=== PATIENT | female | born 1930 | race Native Hawaiian/Other Pacific Islander ===

== ENCOUNTER 2016-12-04 17:00 | Emergency (ER) | payer OTHER ==
[~2016-12-04] VITALS: Ht 167.6 cm; Wt 60.3 kg
[~2016-12-04 17:00] MED LIST: ALEN70TA19 PO; ALPR0.5T24 PO; ASPIRIN 8181 MG PO; CALCIUM600 M1 PO; DIGO0.2549 PO; DILT-XR120 MG OR; DOXEPIN HCL50 MG PO; FISH OIL1 C10 PO; LATA0.00 OP; LORTAB 5-325 MG1 TAB PO; MAGNESIUM1 TAB PO; NAMENDA10 MG PO; OMEP20CA PO; VITAMIN D400 UNI1 PO
[2016-12-04 17:27] VITALS: TEMP 98.2
[2016-12-04] MEDS ORDERED: XANAX XR1 MG OR (17:30)
[2016-12-04 18:32] VITALS: BP 191/74
== END 2016-12-04 18:32 | disposition home or self-care (01) ==
LOC: ED 17:00
DX: S70.11XA Contusion of right thigh, initial encounter (principal); S20.211A Contusion of right front wall of thorax, initial encounter; F13.20 Sedative, hypnotic or anxiolytic dependence, uncomplicated; W06.XXXA Fall from bed, initial encounter; Y92.098 Other place in other non-institutional residence as the place of occurrence of the external cause
CPT/HCPCS: 96372; 99283; J1885

== ENCOUNTER 2017-02-23 15:44 | Outpatient (CLI) | payer OTHER ==
[~2017-02-23 15:44] MED LIST changes: +XANAX XR1 MG OR
== END 2017-02-23 16:50 | disposition home or self-care (01) ==
LOC: RAD 15:44
DX: J40 Bronchitis, not specified as acute or chronic (principal)

== ENCOUNTER 2017-02-24 07:23 | Outpatient (CLI) | payer OTHER ==
[2017-02-24 08:15] LABS: PLATELET COUNT 201 K/uL (152-353)
== END 2017-02-24 19:04 | disposition home or self-care (01) ==
LOC: LABW 07:23
PROVIDERS: Internal Medicine
DX: I25.9 Chronic ischemic heart disease, unspecified (principal); R79.89 Other specified abnormal findings of blood chemistry; Z79.899 Other long term (current) drug therapy
CPT/HCPCS: 36415; 80053; 80061; 81000; 84439; 84443; 85027

== ENCOUNTER 2017-03-30 13:24 | Outpatient (CLI) | payer OTHER | END 2017-03-30 19:07 | disposition home or self-care (01) | LOC: RESP 13:24 | DX: R06.02 Shortness of breath (principal) | CPT/HCPCS: 94640; 94664 ==

== ENCOUNTER 2017-08-18 14:20 | Outpatient (CLI) | payer OTHER ==
[2017-08-18 15:24] LABS: POTASSIUM 4.1 mmol/L (3.6-5.2)
[2017-08-18 16:20] LABS: PLATELET COUNT 168 K/uL (152-353)
== END 2017-08-18 15:20 | disposition home or self-care (01) ==
LOC: LAB 14:20
PROVIDERS: Internal Medicine
DX: Z79.899 Other long term (current) drug therapy (principal); Z51.81 Encounter for therapeutic drug level monitoring
CPT/HCPCS: 80053; 80061; 81000; 84443; 85027

== ENCOUNTER 2017-12-02 14:35 | Outpatient (CLI) | payer OTHER | END 2017-12-02 19:40 | disposition home or self-care (01) | LOC: RAD 14:35 | DX: R50.9 Fever, unspecified (principal) ==

== ENCOUNTER 2017-12-25 10:43 | Emergency (ER) | payer OTHER ==
[~2017-12-25] VITALS: Ht 167.6 cm; Wt 61.2 kg
[2017-12-25 12:03] LABS: PLATELET COUNT 155 K/uL (152-353)
[2017-12-25 12:04] LABS: POTASSIUM 4.1 mmol/L (3.6-5.2)
[2017-12-25 12:40] VITALS: BP 165/74; TEMP 97.2
== END 2017-12-25 12:48 | disposition home or self-care (01) ==
LOC: ED 10:43
DX: J44.1 Chronic obstructive pulmonary disease with (acute) exacerbation (principal); R06.02 Shortness of breath
CPT/HCPCS: 36415; 80053; 83880; 85027; 87081; 87880; 93005; 94664; 94760; 99283

== ENCOUNTER 2018-01-03 08:54 | Outpatient (CLI) | payer OTHER | END 2018-01-03 17:00 | disposition home or self-care (01) | LOC: CT 08:54 | DX: G45.8 Other transient cerebral ischemic attacks and related syndromes (principal) ==

== ENCOUNTER 2018-03-30 08:46 | Outpatient (CLI) | payer OTHER | END 2018-03-30 19:25 | disposition home or self-care (01) | LOC: US 08:46 | DX: R11.0 Nausea (principal) ==

== ENCOUNTER 2018-05-28 05:56 | Emergency (ER) | payer OTHER ==
[~2018-05-28] VITALS: Ht 165.1 cm; Wt 62.1 kg
[2018-05-28 06:14] VITALS: TEMP 97.4
[2018-05-28 06:56] LABS: PLATELET COUNT 171 K/uL (152-353)
[2018-05-28 07:10] LABS: POTASSIUM 4.2 mmol/L (3.6-5.2)
[2018-05-28 08:50] VITALS: BP 146/77
== END 2018-05-28 08:50 | disposition home or self-care (01) ==
LOC: ED 05:56
PROVIDERS: Allergy & Immunology
DX: M81.8 Other osteoporosis without current pathological fracture (principal); M54.89 Other dorsalgia; M19.90 Unspecified osteoarthritis, unspecified site
CPT/HCPCS: 36415; 80053; 81000; 82553; 84484; 85027; 93005; 96372; 99283; J1885

== ENCOUNTER 2018-12-05 12:40 | Outpatient (CLI) | payer OTHER | END 2018-12-05 23:16 | disposition home or self-care (01) | LOC: RAD 12:40 | DX: M54.5 Low back pain (principal); M54.16 Radiculopathy, lumbar region ==

== ENCOUNTER 2019-02-05 14:12 | Emergency (ER) | payer OTHER ==
[~2019-02-05] VITALS: Ht 165.1 cm; Wt 62.1 kg
[2019-02-05 15:49] LABS: PLATELET COUNT 196 K/uL (152-353)
[2019-02-05 15:55] LABS: POTASSIUM 3.9 mmol/L (3.6-5.2)
[2019-02-05 20:30] VITALS: BP 171/54; TEMP 97.7
== END 2019-02-05 20:40 | disposition home or self-care (01) ==
LOC: ED 14:12
PROVIDERS: Emergency Medicine
DX: E86.0 Dehydration (principal)
CPT/HCPCS: 36415; 80053; 81000; 82550; 84484; 85027; 87502; 93005; 99283

== ENCOUNTER 2019-07-06 13:47 | Emergency (ER) | payer OTHER ==
[~2019-07-06] VITALS: Ht 165.1 cm; Wt 62.1 kg
[2019-07-06 13:59] VITALS: TEMP 98
[2019-07-06 15:26] LABS: PLATELET COUNT 215 K/uL (152-353)
[2019-07-06 15:33] LABS: POTASSIUM 4.4 mmol/L (3.6-5.2)
[2019-07-06 17:42] VITALS: BP 122/65
== END 2019-07-06 17:44 | disposition home or self-care (01) ==
LOC: ED 13:47
PROVIDERS: Family Medicine
DX: K59.09 Other constipation (principal)
CPT/HCPCS: 80053; 81000; 85027; 99283

== ENCOUNTER 2019-08-21 11:43 | Outpatient (CLI) | payer OTHER | END 2019-08-21 20:23 | disposition home or self-care (01) | LOC: RAD 11:43 | DX: J40 Bronchitis, not specified as acute or chronic (principal); M25.512 Pain in left shoulder ==

== ENCOUNTER 2019-10-24 08:27 | Outpatient (CLI) | payer OTHER | END 2019-10-24 19:23 | disposition home or self-care (01) | LOC: CT 08:27 | DX: R10.84 Generalized abdominal pain (principal) | CPT/HCPCS: 36415; 82565; 84520; Q9963 ==

== ENCOUNTER 2020-05-28 08:25 | Outpatient (CLI) | payer OTHER ==
[2020-05-28 10:00] LABS: PLATELET COUNT 194 K/uL (152-353)
== END 2020-05-28 19:39 | disposition home or self-care (01) ==
LOC: LABW 08:25
PROVIDERS: Internal Medicine
DX: F03.90 Unspecified dementia, unspecified severity, without behavioral disturbance, psychotic disturbance, mood disturbance, and anxiety (principal); J44.9 Chronic obstructive pulmonary disease, unspecified; I10 Essential (primary) hypertension
CPT/HCPCS: 36415; 80053; 80061; 84439; 84443; 85027

== ENCOUNTER 2020-06-09 09:03 | Outpatient (CLI) | payer OTHER ==
[2020-06-09 09:56] LABS: PLATELET COUNT 167 K/uL (152-353)
== END 2020-06-09 19:09 | disposition home or self-care (01) ==
LOC: LABW 09:03
PROVIDERS: Internal Medicine
DX: E53.8 Deficiency of other specified B group vitamins (principal); D64.9 Anemia, unspecified
CPT/HCPCS: 36415; 82272; 82607; 82728; 82747; 83540; 83550; 85027

== ENCOUNTER 2020-08-11 10:46 | Outpatient (CLI) | payer OTHER ==
[2020-08-11 11:42] LABS: PLATELET COUNT 131 K/uL (152-353)
== END 2020-08-11 20:30 | disposition home or self-care (01) ==
LOC: LABW 10:46
PROVIDERS: Internal Medicine Medical Oncology
DX: D50.8 Other iron deficiency anemias (principal); D64.89 Other specified anemias; E55.9 Vitamin D deficiency, unspecified
CPT/HCPCS: 36415; 84100; 85027; 85044

== ENCOUNTER 2020-10-08 10:03 | Outpatient (CLI) | payer OTHER | END 2020-10-08 19:55 | disposition home or self-care (01) | LOC: CT 10:03 | PROVIDERS: ATTEND Internal Medicine | DX: R22.2 Localized swelling, mass and lump, trunk (principal); N63.10 Unspecified lump in the right breast, unspecified quadrant ==

== ENCOUNTER 2020-10-28 07:57 | Outpatient (CLI) | payer OTHER ==
[2020-10-28 08:17] LABS: PLATELET COUNT 153 K/uL (152-353)
[2020-10-28 08:50] LABS: POTASSIUM 4.1 mmol/L (3.6-5.2)
== END 2020-10-28 21:37 | disposition home or self-care (01) ==
LOC: LABW 07:57
PROVIDERS: ATTEND Internal Medicine
DX: D64.89 Other specified anemias (principal); D50.8 Other iron deficiency anemias; E55.9 Vitamin D deficiency, unspecified
CPT/HCPCS: 36415; 80053; 82728; 83540; 83550; 85027

== ENCOUNTER 2021-01-29 08:54 | Outpatient (CLI) | payer OTHER ==
[2021-01-29 09:24] LABS: PLATELET COUNT 154 K/uL (152-353)
[2021-01-29 10:00] LABS: POTASSIUM 4.2 mmol/L (3.6-5.2)
== END 2021-01-29 20:59 | disposition home or self-care (01) ==
LOC: LABW 08:54
PROVIDERS: ATTEND Internal Medicine Hematology & Oncology
DX: D50.8 Other iron deficiency anemias (principal); D64.89 Other specified anemias; E55.9 Vitamin D deficiency, unspecified
CPT/HCPCS: 36415; 80053; 82272; 82728; 83540; 83550; 85027

== ENCOUNTER 2021-05-28 06:27 | Emergency (ER) | payer OTHER ==
[~2021-05-28] VITALS: Ht 165.1 cm; Wt 56.7 kg
[2021-05-28 06:30] VITALS: BP 170/89; TEMP 98
[2021-05-28 07:02] LABS: PLATELET COUNT 183 K/uL (152-353)
[2021-05-28 07:09] LABS: SODIUM 141 mmol/L (136-145)
[2021-05-28 07:16] LABS: POTASSIUM 4.8 mmol/L (3.6-5.2)
== END 2021-05-28 08:05 | disposition home or self-care (01) ==
LOC: ED 06:27
PROVIDERS: Family Medicine
DX: K21.9 Gastro-esophageal reflux disease without esophagitis (principal); R07.89 Other chest pain
CPT/HCPCS: 80053; 82550; 84484; 85027; 93005; 99283

== ENCOUNTER 2021-06-02 07:55 | Outpatient (CLI) | payer OTHER ==
[2021-06-02 08:45] LABS: PLATELET COUNT 155 K/uL (152-353)
[2021-06-02 08:52] LABS: POTASSIUM 4.3 mmol/L (3.6-5.2)
== END 2021-06-02 21:18 | disposition home or self-care (01) ==
LOC: LABW 07:55
PROVIDERS: ATTEND Internal Medicine Hematology & Oncology
DX: D50.8 Other iron deficiency anemias (principal); D64.89 Other specified anemias; E55.9 Vitamin D deficiency, unspecified
CPT/HCPCS: 36415; 80053; 82728; 83540; 83550; 85027

== ENCOUNTER 2021-06-12 07:34 | Emergency (ER) | payer OTHER ==
[~2021-06-12] VITALS: Ht 165.1 cm; Wt 56.7 kg
[2021-06-12 08:41] LABS: PLATELET COUNT 132 K/uL (152-353)
[2021-06-12 08:59] LABS: POTASSIUM 4.7 mmol/L (3.6-5.2); SODIUM 142 mmol/L (136-145)
[2021-06-12 10:30] VITALS: BP 147/62; TEMP 98.8
== END 2021-06-12 10:30 | disposition home or self-care (01) ==
LOC: ED 07:34
PROVIDERS: Hospitalist
DX: R07.89 Other chest pain (principal); M19.90 Unspecified osteoarthritis, unspecified site; Z20.822 Contact with and (suspected) exposure to COVID-19; R06.02 Shortness of breath
CPT/HCPCS: 80053; 82550; 83880; 84484; 85027; 85610; 85730; 87635; 93005; 96374; 99283; J1885; J2405; U0003

== ENCOUNTER 2021-07-28 13:31 | Emergency (ER) | payer OTHER ==
[~2021-07-28] VITALS: Ht 165.1 cm; Wt 59.0 kg
[2021-07-28 13:45] VITALS: TEMP 98.7
[2021-07-28 14:20] LABS: PLATELET COUNT 167 K/uL (152-353)
[2021-07-28 14:30] LABS: POTASSIUM 5.1 mmol/L (3.6-5.2); SODIUM 135 mmol/L (136-145)
[2021-07-28 16:35] VITALS: BP 145/61
== END 2021-07-28 16:35 | disposition home or self-care (01) ==
LOC: ED 13:31
PROVIDERS: Hospitalist
DX: K27.9 Peptic ulcer, site unspecified, unspecified as acute or chronic, without hemorrhage or perforation (principal); K29.70 Gastritis, unspecified, without bleeding
CPT/HCPCS: 36415; 80053; 81000; 83690; 84484; 85027; 93005; 96360; 96375; 99284; J2405; J3490; Q9963

== ENCOUNTER 2021-10-01 10:19 | Outpatient (CLI) | payer OTHER ==
[2021-10-01 10:36] LABS: PLATELET COUNT 165 K/uL (152-353)
[2021-10-01 11:09] LABS: POTASSIUM 4.2 mmol/L (3.6-5.2)
== END 2021-10-01 19:25 | disposition home or self-care (01) ==
LOC: LABW 10:19
PROVIDERS: ATTEND Internal Medicine Hematology & Oncology
DX: D50.8 Other iron deficiency anemias (principal); D64.89 Other specified anemias; E55.9 Vitamin D deficiency, unspecified
CPT/HCPCS: 36415; 80053; 82728; 83540; 83550; 85027

== ENCOUNTER 2021-10-03 17:07 | Emergency (ER) | payer OTHER ==
[~2021-10-03] VITALS: Ht 165.1 cm; Wt 55.3 kg
[2021-10-03 17:15] VITALS: TEMP 97.8
[2021-10-03 18:17] VITALS: BP 144/78
== END 2021-10-03 18:19 | disposition home or self-care (01) ==
LOC: ED 17:07
DX: R30.0 Dysuria (principal); F41.8 Other specified anxiety disorders; G89.4 Chronic pain syndrome
CPT/HCPCS: 81000; 96372; 99283; J0696

== ENCOUNTER 2022-02-19 10:22 | Outpatient (CLI) | payer OTHER ==
[2022-02-19 10:48] LABS: PLATELET COUNT 178 K/uL (152-353)
[2022-02-19 11:04] LABS: POTASSIUM 4.2 mmol/L (3.6-5.2)
== END 2022-02-19 19:59 | disposition home or self-care (01) ==
LOC: LABW 10:22
PROVIDERS: ATTEND Internal Medicine
DX: Z01.818 Encounter for other preprocedural examination (principal); Z45.010 Encounter for checking and testing of cardiac pacemaker pulse generator [battery]; Z51.81 Encounter for therapeutic drug level monitoring; Z79.899 Other long term (current) drug therapy
CPT/HCPCS: 36415; 80048; 85027; 85610

== ENCOUNTER 2022-03-10 17:20 | Outpatient (CLI) | payer OTHER ==
[2022-03-10 17:34] LABS: PLATELET COUNT 165 K/uL (152-353)
[2022-03-10 18:00] LABS: POTASSIUM 4.5 mmol/L (3.6-5.2)
== END 2022-03-10 19:15 | disposition home or self-care (01) ==
LOC: LAB 17:20
PROVIDERS: ATTEND Internal Medicine
DX: J44.9 Chronic obstructive pulmonary disease, unspecified (principal); I25.89 Other forms of chronic ischemic heart disease; M81.0 Age-related osteoporosis without current pathological fracture; Z79.899 Other long term (current) drug therapy
CPT/HCPCS: 80053; 80061; 81000; 84439; 84443; 85027